=== PATIENT | female | born 1935 | race Caucasian/White ===

== ENCOUNTER 2018-08-07 23:43 | Inpatient (IN) ==
--- NOTE | 2018-08-08 01:33 | XR ---
EXAM DATE: 08/08/2018 1:04 AM EDT AGE/SEX: 83 years / Female INDICATIONS: Shortness of breath. CLINICAL DATA: This is the patient's initial encounter. Patient reports that signs and symptoms have been present for 1 day and indicates a pain score of 0/10. MEDICAL/SURGICAL HISTORY: Chronic obstructive pulmonary disease. Carcinoma, breast. Hypertens ion. . Lumpectomy. COMPARISON: POI, XR CHEST PA AND LAT, 04/20/2018. . FINDINGS: Bilateral upper lung zone pulmonary masses are again noted. Bilateral basilar pleural-parenchymal ten ting is again noted, similar to prior with slight lateral elevation of the left diaphragm. Cardiac co ntours are grossly stable. CONCLUSION: Stable chest appearance. Electronically signed by: Alexey Raines MD 08/08/2018 1:31 AM EDT
[2018-08-08 01:34] LABS: Bilirubin,Urine Negative (Negative); Clarity,Urine Clear (Clear); Color,Urine Yellow (Yellw/Straw); Glucose,Urine (UA) Negative (Negative); Leukocyte Esterase,Urine Small (Negative); Nitrite,Urine Positive (Negative); Specific Gravity,Urine 1.015 (1.002-1.035); Urobilinogen,Urine 0.2 mg/dL (Less than 2)
[2018-08-08 01:36] LABS: Baso # (Auto) 0.3 th/mm3 (0.0-0.2); Baso % (Auto) 1.8 % (0.0-2.0); Eos # (Auto) 0.5 th/mm3 (0.0-0.4); Eos % (Auto) 3.2 % (0.0-4.0); Hematocrit 35.9 % (35.0-46.0); Lymph # (Auto) 1.5 th/mm3 (1.0-4.8); Lymph % (Auto) 10.7 % (9.0-44.0); Mean Corpuscular HGB Conc 33.5 % (32.0-36.0); Mean Corpuscular Hemoglobin 34.2 pg (27.0-34.0); Mean Corpuscular Volume 102.1 fL (80.0-100.0); Mean Platelet Volume 7.5 fL (7.0-11.0); Mono # (Auto) 0.8 th/mm3 (0.0-0.9); Mono % (Auto) 5.8 % (0.0-8.0); Neut % (Auto) 78.5 % (16.0-70.0); Platelet Count 307 th/mm3 (150-450); Red Blood Count 3.52 mil/mm3 (4.00-5.30); Red Cell Distribution Width 13.7 % (11.6-17.2); White Blood Count 14.1 th/mm3 (4.0-11.0)
[2018-08-08 01:40] LABS: Bacteria,Urine Moderate /hpf; RBC,Urine 0-3 /hpf (0-3); Squamous Epithelial Cell,Urine 0-5 /hpf (0-5)
[2018-08-08 01:43] LABS: Chloride 100 meq/L (98-107); Potassium 4.2 meq/L (3.5-5.1); Sodium 138 meq/L (136-145)
[2018-08-08 01:47] LABS: Anion Gap 9 meq/L (5-15); Blood Urea Nitrogen 36 mg/dL (7-18); Calcium 9.1 mg/dL (8.5-10.1); Carbon Dioxide 29.5 meq/L (21.0-32.0); Glucose,Random 118 mg/dL (74-106)
[2018-08-08 01:50] LABS: Alanine Aminotransferase 15 U/L (10-53); Aspartate Aminotransferase 9 U/L (15-37); Glomerular Filtration Rate 21 mL/min (>89)
[2018-08-08 01:52] LABS: Total Protein 6.8 g/dL (6.4-8.2)
[2018-08-08 01:53] LABS: Alkaline Phosphatase 82 U/L (45-117)
--- NOTE | 2018-08-08 02:34 | ED ---
HPI General Chief complaint: Medical Clearance Stated complaint: Confusion x 2 days Time Seen by Provider: 08/08/18 00:33 Source: patient and family Mode of arrival: ambulatory Limitations: no limitations History of Present Illness HPI narrative: Patient is an 83-year-old female her altered mental status. Granddaughter says she has been increasingly forgetful and not acting herself recently. She was diagnosed with a UTI a few weeks ago and prescribed Bactrim for 3 days. She says she does not think that this has cleared it up. She denies any dysuria. She says she has been very uncomfortable because she is sleeping in a recliner. She is concerned because of increased fluid in her legs. She denies any chest pain or shortness of breath. She does not think that she has had a fever. Severity is mild to moderate. Related Data Home Medications Medication Instructions Recorded Confirmed acetaminophen [Tylenol Extra 500 mg PO Q6H PRN 08/08/18 08/08/18 Strength] aspirin [Aspir-81] 81 mg PO DAILY 08/08/18 08/08/18 buspirone 10 mg PO BID 08/08/18 08/08/18 duloxetine 60 mg PO DAILY 08/08/18 08/08/18 exemestane 25 mg PO DAILY 08/08/18 08/08/18 folic acid 1 mg PO DAILY 08/08/18 08/08/18 furosemide 40 mg PO DAILY 08/08/18 08/08/18 glimepiride 2 mg PO QAM 08/08/18 08/08/18 imipramine HCl 50 mg PO BID 08/08/18 08/08/18 metformin 1,000 mg PO BID 08/08/18 08/08/18 metolazone 2.5 mg PO Q OTHER DAY 08/08/18 08/08/18 montelukast 10 mg PO QPM 08/08/18 08/08/18 nebivolol [Bystolic] 20 mg PO DAILY 08/08/18 08/08/18 pravastatin 10 mg PO DAILY 08/08/18 08/08/18 ramipril 10 mg PO BID 08/08/18 08/08/18 Allergies Allergy/AdvReac Type Severity Reaction Status Date / Time egg Allergy Severe Rash Verified 08/08/18 02:18 *MDRO Multi-Drug Resistant AdvReac Unknown Twitching Uncoded 08/08/18 02:18 Organism Review of Systems ROS: all other systems reviewed are negative Constitutional Denies chills and Denies fever(s) ENT Denies dizziness Cardiovascular Denies chest pain and Reports edema Respiratory Denies cough and Denies dyspnea Gastrointestinal Denies abdominal pain and Denies vomiting Genitourinary Denies dysuria Musculoskeletal Denies myalgias and Denies arthralgias Integumentary/Breasts Denies lesions and Denies wounds Neurologic Reports behavioral changes [facility] Social History Social History Substance History: No History of Abuse Second Hand Smoke Exposure: No Smoking Status: Former smoker Tobacco Type: Cigarettes How Often Do You Have a Drink Containing Alcohol: Monthly or less Recent Travel in [facility] within the Last 8 Weeks: No Recent Out of Country Travel within the Last 8 Weeks: No Immunization History Tetanus Immunization: Unsure Hx Influenza Vaccine This Season: Yes Exam Narrative Exam Narrative: GENERAL: Awake and alert, no acute distress. SKIN: Focused skin assessment warm/dry. No wounds or rashes. HEAD: Atraumatic. Normocephalic. EYES: Pupils equal and round. No scleral icterus. No injection or drainage. ENT: Mucous membranes pink and moist. NECK: Trachea midline. No JVD. CARDIOVASCULAR: Regular rate and rhythm. No murmur appreciated. RESPIRATORY: No accessory muscle use. Clear to auscultation. Breath sounds equal bilaterally. GASTROINTESTINAL: Abdomen soft, non-tender, nondistended. MUSCULOSKELETAL: No obvious deformities. No clubbing. No cyanosis. Bilateral pitting edema of the lower extremities NEUROLOGICAL: Awake and alert. No obvious cranial nerve deficits. Motor grossly within normal limits. Normal speech. PSYCHIATRIC: Appropriate mood and affect; insight and judgment normal. Course Initial Documented Vital Signs Temperature 98.5 F 08/07/18 23:44 Pulse Rate 103 H 08/07/18 23:44 Respiratory Rate 18 08/07/18 23:44 Blood Pressure 144/68 H 08/07/18 23:44 Pulse Oximetry 99 08/07/18 23:44 Last Documented Vital Signs Temperature 98.5 F 08/07/18 23:44 Pulse Rate 103 H 08/07/18 23:44 Respiratory Rate 18 08/07/18 23:44 Blood Pressure 144/68 H 09/16/18 23:44 Pulse Oximetry 99 09/16/18 23:44 Medical Decision Making [facility] Narrative Medical decision making narrative: Patient is an 83-year-old female who comes in due to altered mental status. Exam shows no focal neurologic deficits. IV established, labs sent. Labs show a creatinine of 2.20. Previous creatinine was in 2015 and was 1. Urinalysis is positive for UTI. Patient refused CT of her head. Given Rocephin. She will be admitted for further management. Medical Screen Exam Complete: Yes Emergency Medical Condition: Yes Differential Diagnosis Differential Diagnosis: UTI versus electrolyte abnormality versus dehydration Medical Records Medical records reviewed: Yes I reviewed the patient's medical records. Lab Data Lab results reviewed: Yes I reviewed the patient's lab results. Result diagrams: 08/08/18 01:20 08/08/18 01:20 Lab Results 08/08/18 08/08/18 08/08/18 Range/Units 01:20 01:20 01:20 CBC w Diff Auto diff final WBC 14.1 H (4.0-11.0) th/mm3 RBC 3.52 L (4.00-5.30) mil/mm3 Hgb 12.0 (11.6-15.3) gm/dL Hct 35.9 (35.0-46.0) % MCV 102.1 H (80.0-100.0) fL MCH 34.2 H (27.0-34.0) pg MCHC 33.5 (32.0-36.0) % RDW 13.7 (11.6-17.2) % Plt Count 307 (150-450) th/mm3 MPV 7.5 (7.0-11.0) fL Neut % (Auto) 78.5 H (16.0-70.0) % Lymph % (Auto) 10.7 (9.0-44.0) % Mitchell % (Auto) 5.8 (0.0-8.0) % Eos % (Auto) 3.2 (0.0-4.0) % Baso % (Auto) 1.8 (0.0-2.0) % Neut # (Auto) 11.0 H (1.8-7.7) th/mm3 Lymph # (Auto) 1.5 (1.0-4.8) th/mm3 Mitchell # (Auto) 0.8 (0.0-0.9) th/mm3 Eos # (Auto) 0.5 H (0.0-0.4) th/mm3 Baso # (Auto) 0.3 H (0.0-0.2) th/mm3 WBC Differential . Differential Comment . Sodium 138 (136-145) meq/L Potassium 4.2 (3.5-5.1) meq/L Chloride 100 (98-107) meq/L Carbon Dioxide 29.5 (21.0-32.0) meq/L Anion Gap 9 (5-15) meq/L BUN 36 H (7-18) mg/dL Creatinine 2.20 H (0.50-1.00) mg/dL Estimated GFR 21 L (>89) mL/min Random Glucose 118 H (74-106) mg/dL Calcium 9.1 (8.5-10.1) mg/dL Total Bilirubin 0.4 (0.2-1.0) mg/dL AST 9 L (15-37) U/L ALT 15 (10-53) U/L Alkaline Phosphatase 82 (45-117) U/L Troponin I Less than 0.02 L (0.02-0.05) ng/mL Total Protein 6.8 (6.4-8.2) g/dL Albumin 3.0 L (3.4-5.0) g/dL Urine Color Yellow (Yellw/Straw) Urine Clarity Clear (Clear) Urine pH 5.0 (5.0-8.5) Ur Specific [place] 1.015 (1.002-1.035) Urine Protein Negative (Neg-Trace) mg/dL Urine Glucose (UA) Negative (Negative) mg/dL Urine Ketones Negative (Negative) mg/dL Urine Occult Blood Trace (Negative) Urine Nitrate Positive H (Negative) Urine Bilirubin Negative (Negative) Urine Urobilinogen 0.2 (Less than 2) mg/dL Ur Leukocyte Esterase Small H (Negative) Urine RBC 0-3 (0-3) /hpf Urine WBC 9-20 H (0-5) /hpf Ur Squamous Epith Cells 0-5 (0-5) /hpf Urine Bacteria Moderate H (None) /hpf Micro UA Comment Culture indicated Ur Microscopic Review Microscopic reviewed Urine Culture Comments Culture indicated Imaging Data Radiologist's impression: Chest X-Ray 08/08/18 00:50 CONCLUSION: Stable chest appearance. ECG Data EKG Prior to Arrival: No Attestation: I personally reviewed and interpreted this ECG as follows: Interpretation: ECG shows normal sinus rhythm at a rate of 96, no ST elevation or depression, normal intervals Discharge Plan Discharge Disposition Patient Disposition: 30 Still Patient Discharge Condition Condition: Stable Discharge Details Diagnosis: Acute UTI, FATOU (acute kidney injury), Altered mental status Physicians Team ED Provider: Keeley Oconnor Primary Care Provider: Madison Damico Rxs /Orders / Referrals /Forms Prescriptions: No Action furosemide 40 mg Tablet 40 mg PO DAILY RF: 0 metolazone 2.5 mg Tablet 2.5 mg PO Q OTHER DAY RF: 0 imipramine HCl 50 mg Tablet 50 mg PO BID RF: 0 aspirin [Aspir-81] 81 mg Tablet,Delayed Release (Dr/Ec) 81 mg PO DAILY RF: 0 acetaminophen [Tylenol Extra Strength] 500 mg Tablet 500 mg PO Q6H PRN (Reason: Pain) RF: 0 glimepiride 2 mg Tablet 2 mg PO QAM RF: 0 pravastatin 10 mg Tablet 10 mg PO DAILY RF: 0 folic acid 1 mg Tablet 1 mg PO DAILY RF: 0 ramipril 10 mg Capsule 10 mg PO BID RF: 0 duloxetine 60 mg Capsule,Delayed Release(Dr/Ec) 60 mg PO DAILY RF: 0 nebivolol [Bystolic] 20 mg Tablet 20 mg PO DAILY RF: 0 exemestane 25 mg Tablet 25 mg PO DAILY RF: 0 buspirone 10 mg Tablet 10 mg PO BID RF: 0 montelukast 10 mg Tablet 10 mg PO QPM RF: 0 metformin tablet 1,000 mg PO BID RF: 0 Discharge Interventions Interventions: Vital Signs Last Done: 08/07/18 23:44 Status ED Status: With Doctor
[2018-08-08] MEDS ORDERED: Dextrose 50% in Water 50 ML Vial IV.PUSH PRN (03:00)
[2018-08-08] MEDS ORDERED: Bisacodyl 10 MG Supp RECTAL PRN (03:01)
[2018-08-08] MEDS ORDERED: Acetaminophen 325 MG Tablet PO PRN (03:01)
[2018-08-08] MEDS: Sod Chloride 0.9% Inj 1,000 ML IV.CONT SCH ×2 (04:11→15:13)
[2018-08-08 06:08] VITALS: RESP 20
[2018-08-08] MEDS: Insulin NovoLOG Aspart Correctional Sugar Inj SQ SCH ×2 (08:39→12:47)
[2018-08-08] MEDS ORDERED: Folic Acid 1 MG Tablet PO SCH (09:00)
[2018-08-08] MEDS ORDERED: Duloxetine 60 MG DR Capsule PO SCH (09:00)
[2018-08-08] MEDS ORDERED: Senna/Docusate Sodium 8.6/50 MG Tablet PO SCH (09:00)
[2018-08-08 11:56] VITALS: BP 128/61; PULSE 87; TEMP 98; O2SAT 97
[2018-08-08 12:27] LABS: Baso # (Auto) 0.1 th/mm3 (0.0-0.2); Baso % (Auto) 0.9 % (0.0-2.0); Eos # (Auto) 0.6 th/mm3 (0.0-0.4); Eos % (Auto) 4.6 % (0.0-4.0); Hematocrit 33.5 % (35.0-46.0); Hemoglobin 11.2 gm/dL (11.6-15.3); Lymph # (Auto) 1.8 th/mm3 (1.0-4.8); Lymph % (Auto) 15.2 % (9.0-44.0); Mean Corpuscular HGB Conc 33.5 % (32.0-36.0); Mean Corpuscular Hemoglobin 34.4 pg (27.0-34.0); Mean Corpuscular Volume 102.8 fL (80.0-100.0); Mono # (Auto) 0.9 th/mm3 (0.0-0.9); Mono % (Auto) 7.2 % (0.0-8.0); Neut # (Auto) 8.7 th/mm3 (1.8-7.7); Neut % (Auto) 72.1 % (16.0-70.0); Platelet Count 315 th/mm3 (150-450); Red Blood Count 3.26 mil/mm3 (4.00-5.30); Red Cell Distribution Width 13.6 % (11.6-17.2); White Blood Count 12.1 th/mm3 (4.0-11.0)
--- NOTE | 2018-08-08 12:31 | P.DCO ---
- Diagnosis (3) Altered mental status - Physical Therapy Order: Evaluate and treat, Improve ambulation, Strength and gait training - Home Health Nursing Order: Medical education, Signs/symptoms of disease process, Oxygen administration education, Nursing assessment with vital signs - Certification I have seen patient Lainey Fernandez on 08/08/18. My clinical findings support the need for the requested home health care services because: Patient has SOB, Deconditioned with increased weakness, High risk of falls I certify that my clinical findings support that this patient is homebound because: Hx COPD - exertion dyspnea/weakness, Unsteady gait/balance, Unsafe to leave home unassisted (3) Altered mental status Qualifiers: Altered mental status type: unspecified Qualified Code(s): R41.82 - Altered mental status, unspecified
[2018-08-08 12:36] LABS: Potassium 4.3 meq/L (3.5-5.1)
[2018-08-08 12:38] LABS: Calcium 8.6 mg/dL (8.5-10.1)
[2018-08-08 12:39] LABS: Carbon Dioxide 32.9 meq/L (21.0-32.0)
--- NOTE | 2018-08-08 12:49 | P.HP ---
History of Present Illness Primary Care Physician: Madison Damico MD Chief Complaint: Check for UTI History of Present Illness: 83-year-old female with known history of chronic respiratory failure, hypertension, hyperlipidemia, diabetes, chronic kidney disease, recurrent urinary tract infections who presented to the hospital because she thought she had another urinary tract infection. Patient states that she has been having problems with her sleeping arrangements at home with a bed that she could not get out of. So they get rid of the bed and she started sleeping in a recliner. They have contacted home health agency that is taking care of her on a regular basis and asked them if they could get a hospital bed. They could not until Wednesday. The patient was not improving and she started noticing lower extremity edema and they think that she may have a urinary tract infection the patient came to the hospital for evaluation. The patient states that she was treated for urinary tract infection proximally 10 days ago with 3 days worth of Bactrim. Patient states that he been having polyuria, dysuria. Denies any fever, chills. Patient had workup done emergency department found to have mild urinary tract infection, elevated BUN/creatinine baseline is unknown at this time, patient does indicate that she does have chronic kidney disease. Patient is doing well this time. Appears to be alert and orientated. CT scan was ordered by the ER physician, however it was not been done and patient does not want to have it done. After discussion with the patient she wants to go home, but she does not want to go until her hospital bed is set up by home health care. - Diagnosis (1) FATOU (acute kidney injury) (2) Acute UTI (3) Altered mental status Inpatient Certification: I certify that the inpatient services were ordered in accordance with Medicare regulations governing the order. This includes certification that hospital inpatient services are reasonable and necessary and in the case of services not specified as inpatient-only under 42 CFR 419.22(n), that they are appropriately provided as inpatient services in accordance to with the 2-midnight benchmark under 43 CFR 412.3(e) Estimated Total Length of Stay (Days): 2 Plans for Post Hospital Care: Not yet determined Review of Systems All other systems reviewed negative except as stated in HPI Cardiovascular: Reports leg swelling Genitourinary: Reports difficulty urinating, Reports painful urination PMFSH - History History Provided By: Patient - Medical History Medical History: Medical History (Last Updated 08/08/18 @ 12:40 by THADDEUS Rodriguez) Chronic kidney disease, stage 3 Chronic respiratory failure with hypoxia Gouty arthritis History of COPD History of anxiety History of bilevel positive airway pressure (BiPAP) dependence History of breast cancer History of chronic hypertension History of depression Hx of chronic arthritis Hx of chronic kidney disease Hx of diabetes mellitus Hx of sleep apnea Hx of urinary infection Morbid obesity with BMI of 45.0-49.9, adult - Surgical History Surgical History: Surgical History (Last Updated 08/08/18 @ 12:40 by THADDEUS Rodriguez) History of appendectomy History of cataract surgery History of cholecystectomy History of tonsillectomy Status post breast lumpectomy - Family History Family History: Family History (Last Updated 08/08/18 @ 12:40 by THADDEUS Rodriguez) Father History of esophageal cancer Mother History of stroke - Tobacco History Second Hand Smoke Exposure: No Tobacco Use In Past 30 Days: No Smoking Status: Never smoker Tobacco Type: Cigarettes - Alcohol History How Often Do You Have a Drink Containing Alcohol: Never - Substance Use History Substance History: No History of Abuse - Travel History Recent Travel in the [place] Within the Last 8 Weeks: No Recent Travel Out of the Country Within the Last 8 Weeks: No - Immunization History Tetanus Immunization: Unsure Hx Influenza Vaccine This Season: Yes Medications and Allergies Active Medications: Active Medications Acetaminophen (Tylenol) 650 mg PO Q4H PRN PRN Reason: Temp > 100.4 Al Hydroxide/Mg Hydroxide (Milk Of Magnmariza Liq) 30 ml PO Q12H PRN PRN Reason: Mild Constipation Bisacodyl (Dulcolax Supp) 10 mg RECTAL DAILY PRN PRN Reason: SEVERE CONSITIPATION Buspirone HCl (Buspar) 10 mg PO BID [facility] Last Admin: 08/08/18 08:23 Dose: 10 mg Dextrose (D50w Vial) 50 ml IV.PUSH UNSCH PRN PRN Reason: PER HYPOGLYCEMIA PROTOCOL Duloxetine HCl (Cymbalta) 60 mg PO DAILY [facility] Last Admin: 08/08/18 08:23 Dose: 60 mg Folic Acid (Folic Acid) 1 mg PO DAILY [facility] Last Admin: 08/08/18 08:24 Dose: 1 mg Glucagon (Glucagon Inj) 1 mg OTHER PRN PRN PRN Reason: for Hypoglycemia Protocol Ceftriaxone Sodium 1,000 mg/ (Sodium Chloride) 100 mls @ 200 mls/hr IV.SIG Q24H [facility] Sodium Chloride (Ns Inj) 1,000 mls @ 100 mls/hr IV.CONT .Q10H [facility] Last Admin: 08/08/18 04:11 Dose: 100 mls/hr Insulin Aspart (Novolog Insulin Correctional Sugar Inj) 0 unit SQ ACHS [facility]; Protocol Last Admin: 08/08/18 08:39 Dose: 1 unit Lactulose (Lactulose Liq) 30 ml PO DAILY PRN PRN Reason: SEVERE CONSITIPATION Montelukast Sodium (Singulair) 10 mg PO QPM [facility] Nebivolol (Bystolic) 20 mg PO DAILY [facility] Last Admin: 08/08/18 08:24 Dose: 20 mg Ondansetron HCl (Zofran Inj) 4 mg IV.PUSH Q6H PRN PRN Reason: NAUSEA OR VOMITING Pravastatin Sodium (Pravachol) 10 mg PO DAILY [facility] Last Admin: 08/08/18 08:25 Dose: 10 mg Senna/Docusate Sodium (Melisa-Colace) 1 tab PO BID [facility] Last Admin: 08/08/18 08:24 Dose: 1 tab Sennosides (Senokot) 17.2 mg PO Q12H PRN PRN Reason: Moderate Constipation Allergies Allergy/AdvReac Type Severity Reaction Status Date / Time egg Allergy Severe Rash Verified 08/08/18 02:18 *MDRO Multi-Drug Resistant AdvReac Unknown Twitching Uncoded 08/08/18 02:18 Organism Home Medications Medication Instructions Recorded Confirmed Type acetaminophen [Tylenol Extra 500 mg PO Q6H PRN 08/08/18 08/08/18 History Strength] aspirin [Aspir-81] 81 mg PO DAILY 08/08/18 08/08/18 History buspirone 10 mg PO BID 08/08/18 08/08/18 History duloxetine 60 mg PO DAILY 08/08/18 08/08/18 History exemestane 25 mg PO DAILY 08/08/18 08/08/18 History folic acid 1 mg PO DAILY 08/08/18 08/08/18 History furosemide 40 mg PO DAILY 08/08/18 08/08/18 History glimepiride 2 mg PO QAM 08/08/18 08/08/18 History imipramine HCl 50 mg PO BID 08/08/18 08/08/18 History metformin 1,000 mg PO BID 08/08/18 08/08/18 History metolazone 2.5 mg PO Q OTHER DAY 08/08/18 08/08/18 History montelukast 10 mg PO QPM 08/08/18 08/08/18 History nebivolol [Bystolic] 20 mg PO DAILY 08/08/18 08/08/18 History pravastatin 10 mg PO DAILY 08/08/18 08/08/18 History ramipril 10 mg PO BID 08/08/18 08/08/18 History Exam Vital signs: Vital Signs 08/07/18 23:44 08/08/18 02:38 08/08/18 04:00 Temperature 98.5 F 98.6 F Pulse Rate 103 H 78 92 H Respiratory Rate 18 16 20 Blood Pressure 144/68 H 124/66 118/78 Pulse Oximetry 99 97 96 08/08/18 05:54 08/08/18 08:00 08/08/18 11:55 Temperature 98.2 F 98 F Pulse Rate 90 86 87 Respiratory Rate 20 20 Blood Pressure 129/58 L 128/61 Pulse Oximetry 95 97 Intake & Output 08/07/18 08/08/18 08/08/18 18:59 06:59 18:59 Intake Total 580 / 580 Output Total 201 / 201 Balance 379 / 379 Weight 114.3 kg Intake: IV 100 / 100 Rocephin Inj 1,000 MG In NS Inj 100 / 100 100 ML @ 200 mls/hr IV.SIG ONCE ONE Rx#:[id number] Oral 480 / 480 Output: Urine 201 / 201 Other: Date of Last Bowel Movement 08/07/18 Weight On Admission 115 kg Narrative: GENERAL: Well-developed, morbidly obese with BMI 49.2, in no acute distress. alert and orientated HEENT: Head is normocephalic without any lesions or masses noted. Facial features are symmetric. Eyes: Pupils equal round reactive to light. Extraocular muscles are intact. Conjunctivae were clear. Oropharyngeal: Pharynx without any erythema edema. Tongue is midline without deviation. Buccal mucosa is moist without any masses or lesions NECK: Supple without any masses. Trachea midline no deviation. No JVD, no bruits are appreciated CARDIAC: Regular rhythm, regular rate. S1/S2 are heard. No murmurs gallops or rubs. LUNGS: Clear to auscultation bilaterally. No wheeze, rhonchi or rales. No use of accessory muscles on inspiration or expiration. ABDOMEN: Soft, nontender. Nondistended. Bowel sounds heard in all 4 quadrants. No organomegaly or masses. Negative rebound, negative guarding EXTREMITIES: No edema, pulses are equal bilaterally. No cyanosis or clubbing NEUROLOGY: Mood and affect appear appropriate. Cranial nerves II through XII grossly intact. Muscle strength 5/5 in upper and lower extremities bilaterally. Deep tendon reflexes are 2+ in upper and lower extremities bilaterally. Results - Labs CBC & Chem 7: 08/08/18 12:20 08/08/18 01:20 Labs: Laboratory Results - last 24 hr 08/08/18 08/08/18 08/08/18 01:20 01:20 01:20 CBC w Diff Auto diff final WBC 14.1 H RBC 3.52 L Hgb 12.0 Hct 35.9 MCV 102.1 H MCH 34.2 H MCHC 33.5 RDW 13.7 Plt Count 307 MPV 7.5 Neut % (Auto) 78.5 H Lymph % (Auto) 10.7 [place] % (Auto) 5.8 Eos % (Auto) 3.2 Baso % (Auto) 1.8 Neut # (Auto) 11.0 H Lymph # (Auto) 1.5 [place] # (Auto) 0.8 Eos # (Auto) 0.5 H Baso # (Auto) 0.3 H WBC Differential . Differential Comment . Sodium 138 Potassium 4.2 Chloride 100 Carbon Dioxide 29.5 Anion Gap 9 BUN 36 H Creatinine 2.20 H Estimated GFR 21 L POC Glucose Random Glucose 118 H Calcium 9.1 Total Bilirubin 0.4 AST 9 L ALT 15 Alkaline Phosphatase 82 Troponin I Less than 0.02 L Total Protein 6.8 Albumin 3.0 L Urine Color Yellow Urine Clarity Clear Urine pH 5.0 Ur Specific [place] 1.015 Urine Protein Negative Urine Glucose (UA) Negative Urine Ketones Negative Urine Occult Blood Trace Urine Nitrate Positive H Urine Bilirubin Negative Urine Urobilinogen 0.2 Ur Leukocyte Esterase Small H Urine RBC 0-3 Urine WBC 9-20 H Ur Squamous Epith Cells 0-5 Urine Bacteria Moderate H Micro UA Comment Culture indicated Ur Microscopic Review Microscopic reviewed Urine Culture Comments Culture indicated 08/08/18 08/08/18 08/08/18 08:34 11:30 12:20 CBC w Diff Auto diff final WBC 12.1 H RBC 3.26 L Hgb 11.2 L Hct 33.5 L MCV 102.8 H MCH 34.4 H MCHC 33.5 RDW 13.6 Plt Count 315 MPV 7.0 Neut % (Auto) 72.1 H Lymph % (Auto) 15.2 [place] % (Auto) 7.2 Eos % (Auto) 4.6 H Baso % (Auto) 0.9 Neut # (Auto) 8.7 H Lymph # (Auto) 1.8 [place] # (Auto) 0.9 Eos # (Auto) 0.6 H Baso # (Auto) 0.1 WBC Differential . Differential Comment . Sodium Potassium Chloride Carbon Dioxide Anion Gap BUN Creatinine Estimated GFR POC Glucose 170 H 135 H Random Glucose Calcium Total Bilirubin AST ALT Alkaline Phosphatase Troponin I Total Protein Albumin Urine Color Urine Clarity Urine pH Ur Specific [place] Urine Protein Urine Glucose (UA) Urine Ketones Urine Occult Blood Urine Nitrate Urine Bilirubin Urine Urobilinogen Ur Leukocyte Esterase Urine RBC Urine WBC Ur Squamous Epith Cells Urine Bacteria Micro UA Comment Ur Microscopic Review Urine Culture Comments - Imaging Impressions Chest X-Ray 08/08/18 00:50 CONCLUSION: Stable chest appearance. Caprini VTE Risk Assessment Caprini VTE Risk Assessment: Moderate/High Risk (score >= 2) Caprini Risk Assessment Model: Point Value = 1 Point Value = 2 Point Value = 3 Point Value = 5 Age 41-60 Minor surgery BMI > 25 kg/m2 Swollen legs Varicose veins or History of unexplained or recurrent spontaneous Oral contraceptives or hormone replacement Sepsis (< 1 month) Serious lung disease, including pneumonia (< 1 month) Abnormal pulmonary function Acute myocardial infarction Congestive heart failure (< 1 month) History of inflammatory bowel disease Medical patient at bed rest Age 61-74 Arthroscopic surgery Major open surgery (> 45 min) Laparoscopic surgery (> 45 min) Malignancy Confined to bed (> 72 hours) Immobilizing plaster cast Central venous access Age >= 75 History of VTE Family history of VTE Factor V Leiden Prothrombin [id number] Lupus anticoagulant Anticardiolipin antibodies Elevated serum homocysteine Heparin-induced thrombocytopenia Other congenital or acquired thrombophilia Stroke (< 1 month) Elective arthroplasty Hip, pelvis, or leg fracture Acute spinal cord injury (< 1 month) Prophylaxis Regimen: Total Risk Factor Score Risk Level Prophylaxis Regimen 0-1 Low Early ambulation 2 Moderate Order ONE of the following: *Sequential Compression Device (SCD) *Heparin 5000 units SQ BID 3-4 Higher Order ONE of the following medications: *Heparin 5000 units SQ TID *Enoxaparin/Lovenox 40 mg SQ daily (WT < 150 kg, CrCl > 30 mL/min) *Enoxaparin/Lovenox 30 mg SQ daily (WT < 150 kg, CrCl > 10-29 mL/min) *Enoxaparin/Lovenox 30 mg SQ BID (WT < 150 kg, CrCl > 30 mL/min) AND/OR *Sequential Compression Device (SCD) 5 or more Highest Order ONE of the following medications: *Heparin 5000 units SQ TID (Preferred with Epidurals) *Enoxaparin/Lovenox 40 mg SQ daily (WT < 150 kg, CrCl > 30 mL/min) *Enoxaparin/Lovenox 30 mg SQ daily (WT < 150 kg, CrCl > 10-29 mL/min) *Enoxaparin/Lovenox 30 mg SQ BID (WT < 150 kg, CrCl > 30 mL/min) AND *Sequential Compression Device (SCD) Assessment and Plan - Assessment (1) FATOU (acute kidney injury) Code(s): N17.9 - Acute kidney failure, unspecified Status: Acute (2) Acute UTI Code(s): N39.0 - Urinary tract infection, site not specified Status: Acute (3) Altered mental status Code(s): R41.82 - Altered mental status, unspecified Status: Acute - Plan Urinary tract infection, recurrent -Patient currently on Rocephin, will change to Cipro p.o. -Continue to follow culture for appropriate antibiotics Chronic kidney disease stage III -Patient has not been evaluated in the hospital recently, does have history of chronic kidney disease stage III, now appears to have a stable chronic kidney disease stage IV -Continue monitor renal function Increased forgetfulness and change in behavior -Patient is alert and orientated at this time -Could be secondary to urinary tract infection -Patient is deferring any evaluation. Deferring CT scan -Patient appears to be alert and orientated this time Hypertension -Continue home medications Chronic hypoxic respiratory failure with history of COPD -Continue O2 supplementation maintain O2 sats greater than 90% -Duo nebs as needed Diabetes -Accu-Cheks with sliding scale insulin -Diabetic diet DVT prevention -Sequential compression devices Discharge Planning: Discharge home in stable condition once arrangements made by case management Activity: Ad nico. Diet: Diabetic diet Medications per medication which evaluation Follow-up with primary care doctor in 1 week (3) Altered mental status Qualifiers: Altered mental status type: unspecified Qualified Code(s): R41.82 - Altered mental status, unspecified
[2018-08-08] MEDS ORDERED: Montelukast 10 MG Tablet PO SCH (18:00)
--- NOTE | 2018-08-08 19:23 | ECG ---
Date Performed: 08/08/2018 Time Performed: 01:07:52 PTAGE: 83 years EKG: Sinus rhythm NORMAL ECG PREVIOUS TRACING : 06/24/2015 00.29 Since the previous tracing, no significant change noted DOCTOR: Balbina Cook Interpretating Date/Time 08/08/2018 19:23:24
== END 2018-08-08 15:39 | disposition home health service (06) ==
LOC: PHED 23:43 → PHEDA 08-08 02:39 → PH3 08-08 03:39
PROVIDERS: ADMIT Family Medicine; ATTEND Family Medicine